=== PATIENT | female | born 1965 | race Caucasian/White ===

== ENCOUNTER 2020-10-22 14:43 | Observation (INO) ==
[2020-10-22] MEDS ORDERED: IOPAMIDOL 125 ML BOTTLE IV ONE (14:44)
[2020-10-22] MEDS ORDERED: KETOROLAC 15 MG/ML VIAL IV ONE (15:20)
[2020-10-22] MEDS ORDERED: 0.9 % SODIUM CHLORIDE 1,000 ML IV ONE ×2 (15:20→17:52)
[2020-10-22] MEDS ORDERED: ONDANSETRON 4 MG/2 ML VIAL IV ONE (15:43)
--- NOTE | 2020-10-22 15:45 | Emergency Department Note ---
HPI General Chief complaint: Flank Pain Stated complaint: left flank pain Time Seen by Provider: 10/22/20 14:50 Source: patient Mode of arrival: ambulatory Limitations: no limitations History of Present Illness HPI Narrative: Narrative: This patient presents for reevaluation of left flank pain from a kidney stone. Patient has had multiple ER visits for this complaint. She was seen at another emergency department and found to have a 2 mm obstructing stone to the left UVJ. She has been discharged with tamsulosin, hydrocodone and Toradol. She reports she is been taking his medications as directed but her pain has not been managed. She has been nauseated but has not had any vomiting. Pain has not changed in its location. She is unsure if she has had fevers or chills she does not have a thermometer at home. She has not felt lightheaded or short of breath. Related Data Home Medications Medication Instructions Recorded Confirmed losartan 100 mg PO DAILY 10/22/20 10/22/20 pantoprazole 20 mg PO DAILY 10/22/20 10/22/20 Allergies Allergy/AdvReac Type Severity Reaction Status Date / Time acetaminophen [From Percocet] Allergy Hives Verified 10/22/20 14:49 hydrocodone [From Lortab] Allergy Itching Verified 10/22/20 14:49 oxycodone [From Percocet] Allergy Hives Verified 10/22/20 14:49 Penicillins Allergy Anaphylaxis Verified 10/22/20 14:49 iv contrast Allergy Unknown Uncoded 10/22/20 14:49 Review of Systems ROS ROS Narrative: Narrative: Pertinent positives and negatives as noted in HPI. All other systems reviewed and negative. [facility] Narrative Patient History Narrative: Narrative: Medical/Surgical/Family History All Active Problems (Updated 10/22/20 @ 19:28 by Lanie Black PA-C) Renal stone (Acute) Exposure to COVID-19 virus (Acute) Contusion, hand (Acute) Constipation (Acute) Medical History Constipation Contusion, hand Social History Smoking Status: Never smoker Exam Narrative Narrative: Narrative: Vital signs noted General: mild distress. Skin: Warm. Dry. No rash. Normal color. Eyes: PERRL. EOMI. Mouth: Membranes moist. Normal inspection. Neck: Good ROM. No meningeal signs. Supple. Cardiovascular: Regular rate and rhythm. No murmur. Respiratory: No respiratory distress. Breath sounds equal. No wheezing/rales/rhonchi. Gastrointestinal: Abdomen soft. Tenderness palpation of the left abdomen.. No distention. Normal bowel sounds. No rebound tenderness or guarding. Back: Left CVA tenderness. No midline tenderness. Extremities: No tenderness. No swelling. No erythema. No edema. Good peripheral pulses x 4 Neurological: No focal neurological deficits observed. Alert. Oriented x 3 General Limitations: no limitations Course Course Course Narrative: An IV is established patient medicated with Toradol for pain, normal saline for dehydration and Zofran for nausea. Patient's pain is unimproved with Toradol and she is medicated with morphine. UA is negative CT of the abdomen pelvis with and without contrast identifies a 5 mm obstructing stone in the left UVJ. Based on the size of the stone to the patient's dif ficulty with pain management as an outpatient, as well as the duration of her symptoms I did speak with on-call urologist Dr. Hernandez. He will take the patient to surgery tomorrow to remove the stone. Patient is admitted to urology service. Tuck-in orders are placed by myself. Vital Signs Vital signs: Vital Signs Temperature 98.8 F 10/22/20 14:43 Pulse Rate 94 H 10/22/20 14:43 Respiratory Rate 16 10/22/20 14:43 Blood Pressure 172/94 10/22/20 14:43 Pulse Oximetry (%) 97 10/22/20 14:43 Temperature 98.8 F 10/22/20 14:43 Pulse Rate 80 10/22/20 19:04 Respiratory Rate 16 10/22/20 14:43 Blood Pressure 177/92 10/22/20 19:04 Pulse Oximetry (%) 94 10/22/20 19:04 [facility] MDM Narrative Medical decision making narrative: Narrative: Lab Data Result diagrams: 10/22/20 16:10 Labs: Lab Results 10/22/20 10/22/20 10/22/20 Range/Units 15:35 16:10 16:10 WBC 10.0 (4.5-11.0) K/mcL RBC 3.87 L (4.00-5.20) M/mcL Hgb 10.7 L (12.0-15.0) g/dL Hct 33.1 L (36.0-48.0) % POC Hct 32 L (36-48) % MCV 85.5 (80.0-100.0) fL MCH 27.6 (26.0-34.0) pg MCHC 32.3 (31.0-36.0) g/dL RDW 13.5 (11.5-14.5) % Plt Count 295 (140-440) K/mcL MPV 10.5 H (7.4-10.4) fL Neut % (Auto) 73.9 (38.0-78.0) % Lymph % (Auto) 16.6 (15.0-49.0) % Luce % (Auto) 8.6 (1.0-12.0) % Eos % (Auto) 0.7 (0.0-7.0) % Baso % (Auto) 0.2 (0.0-2.0) % Lymph # (Auto) 1.67 (1.50-4.80) K/mcL Luce # (Auto) 0.86 (0.10-0.90) K/mcL Eos # (Auto) 0.07 (0.00-0.70) K/mcL Baso # (Auto) 0.02 (0.00-0.20) K/mcL Absolute Neutrophils 7.42 (1.80-8.00) K/mcL POC Sodium 142 (133-145) mEq/L POC Potassium 3.7 (3.3-5.1) mEql/L POC Chloride 107 (96-108) mEq/L POC Total CO2 23 (22-30) mmol/L POC BUN 10 (6-20) mg/dL POC Creatinine 0.7 (0.6-1.2) mg/dL POC Glucose 96 (70-105) mg/dL POC WB Ioniz Calcium 1.21 (1.16-1.32) mmEq/L Urine Color Straw Urine Appearance Clear (Clear) Urine pH 6.0 (5.0-9.0) Ur Specific [place] 1.003 (1.000-1.035) Urine Protein Negative (Negative) mg/dL Urine Glucose (UA) Negative (Negative) mg/dL Urine Ketones Negative (Negative) mg/dL Urine Occult Blood Negative (Negative) mg/dL Urine Nitrate Negative (Negative) Urine Bilirubin Negative (Negative) mg/dL Urine Urobilinogen Negative mg/dL Ur Leukocyte Esterase Negative (Negative) /ug Urine RBC 0 (0-3) /hpf Urine WBC 1 (0-4) /hpf Ur Squamous Epith Cells 2 (0-4) /hpf Urine Bacteria None (0) /hpf Ur Culture Indicated? No Discharge Plan Patient/Caregiver Discharge Instructions Pt seen by PROTECTION OFFICER/PA only: Yes Clinical Impression: Renal stone Patient Disposition: Xfer As Outpt/Obs ([facility]) Follow up with: Red Christian ARNP [Primary Care Provider] - Prescriptions: No Action pantoprazole 20 mg tablet,delayed release (DR/EC) 20 mg PO DAILY RF: 0 losartan 100 mg tablet 100 mg PO DAILY RF: 0
[2020-10-22 16:25] LABS: POC Blood Urea Nitrogen 10 mg/dL (6-20); POC CO2 23 mmol/L (22-30); POC Calcium, Ionized 1.21 mmEq/L (1.16-1.32); POC Chloride 107 mEq/L (96-108); POC Creatinine 0.7 mg/dL (0.6-1.2); POC Glucose, Random 96 mg/dL (70-105); POC Hematocrit 32 % (36-48); POC Potassium 3.7 mEql/L (3.3-5.1); POC Sodium 142 mEq/L (133-145)
[2020-10-22] MEDS ORDERED: fentaNYL 100 MCG/2 ML VIAL IV STA (16:26)
[2020-10-22] MEDS ORDERED: KETAMINE 10 MG/ML ML IV ONE (16:26)
[2020-10-22 16:50] LABS: Appearance,Urine CLEAR (Clear); Bilirubin,Urine Negative (Negative); Color,Urine STRAW; Culture Indicated,Urine No; Glucose,Urine (UA) Negative (Negative); Ketones,Urine Negative (Negative); Leukocyte Esterase,Urine Negative /ug (Negative); Nitrate,Urine Negative (Negative); Protein,Urine Negative (Negative); Specific Gravity,Urine 1.003 (1.000-1.035); Urine Blood Negative (Negative); Urine RBC 0 /hpf (0-3); Urine Squamous Epithelial Cell 2 /hpf (0-4); Urine WBC 1 /hpf (0-4); Urobilinogen,Urine Negative
[2020-10-22 17:24] LABS: Basophils # (Auto) 0.02 K/mcL (0.00-0.20); Basophils % (Auto) 0.2 % (0.0-2.0); Eosinophils # (Auto) 0.07 K/mcL (0.00-0.70); Eosinophils % (Auto) 0.7 % (0.0-7.0); Hematocrit 33.1 % (36.0-48.0); Hemoglobin 10.7 g/dL (12.0-15.0); Lymphocytes # (Auto) 1.67 K/mcL (1.50-4.80); Lymphocytes % (Auto) 16.6 % (15.0-49.0); Mean Cell Volume 85.5 fL (80.0-100.0); Mean Corpuscular HGB Conc 32.3 g/dL (31.0-36.0); Mean Platelet Volume 10.5 fL (7.4-10.4); Monocytes # (Auto) 0.86 K/mcL (0.10-0.90); Monocytes % (Auto) 8.6 % (1.0-12.0); Neutrophils % (Auto) 73.9 % (38.0-78.0); Platelet Count 295 K/mcL (140-440); RBC 3.87 M/mcL (4.00-5.20); Red Cell Distribution Width 13.5 % (11.5-14.5)
[2020-10-22] MEDS ORDERED: morphine 2 MG/ML VIAL IV PRN (17:47)
[2020-10-22] MEDS ORDERED: ONDANSETRON 4 MG/2 ML VIAL IV PRN (17:47)
[2020-10-22] MEDS ORDERED: 0.9 % SODIUM CHLORIDE 1,000 ML IV SCH ×3 (18:00)
[2020-10-22] MEDS: morphine 4 MG/ML VIAL IV PRN ×2 (18:07→19:29)
--- NOTE | 2020-10-22 19:51 | Cat Scan Report ---
History: Nephrolithiasis with left-sided stone and increasing pain TECHNIQUE: The patient was imaged before and after intravenous nonionic contrast. Sagittal and coronal reformats were created. Radiation exposure was limited using dose reduction technology. FINDINGS: Mild dependent atelectasis is present in the posterior basal segments of both lower lobes. The liver and spleen are normal in size and homogeneous. The gallbladder and bile ducts are normal. No evidence of mass or inflammation the pancreas. The adrenals are normal and symmetric. At the left ureteropelvic junction there is a 4 x 5 mm calculus causing mild hydronephrosis. There is subtle stranding of the perirenal fat. Distal to the stone the left ureter is decompressed. There are also two tiny calyceal stones in left kidney which each measure less than 1.5 mm in diameter. In the right kidney there are two tiny nonobstructing calyceal stones which are approximately 1 mm in size. There is no hydronephrosis on the right. Renal parenchyma is normal in thickness and attenuation bilaterally, without evidence of inflammation or mass. There are no stones within the urinary bladder.. Comparison with the prior CT from 06/04/20 shows that the 5 mm stone was previously located in the upper pole infundibulum. The aorta and inferior vena cava are normal. Patient has no ascites. Bowel gas pattern is normal. There is a 2 cm cyst in left ovary. There appear to be several tiny follicles in the right ovary. Uterus is anteverted and normal in size. IMPRESSION: Bilateral small kidney stones 5 mm calculus of the left ureteropelvic junction causing mild hydronephrosis. Lanie Black was called with the report Interpreted and Authenticated by: Jaswinder Blunt 10/22/20
[2020-10-22] MEDS: DEXTROSE 5%-1/4NS 1,000 ML IV SCH (20:45)
[2020-10-23] MEDS: DEXTROSE 5%-1/4NS 1,000 ML IV SCH ×3 (06:41→20:05)
[2020-10-23] MEDS ORDERED: IPRATROPIUM/ALBUTEROL 3 ML AMPUL.NEB NEB PRN ×2 (07:00→12:47)
[2020-10-23] MEDS ORDERED: SCOPOLAMINE 1 PATCH PATCH TOPICAL PRN (08:00)
--- NOTE | 2020-10-23 11:39 | EKG ---
[facility] Test Date: 2020-10-22 Pat Name: Sylvia Greer Department: [facility] Room: 131 Gender: Female [employer]: : 1965 Requested By: Nick Sparks Order Number: [id number] Reading MD: Kvng Dunn M.D. Measurements Intervals Accord Rate: 86 P: 49 ND: 168 QRS: 39 QRSD: 84 T: 7 QT: 344 QTc: 412 Interpretive Statements SINUS RHYTHM LEFT ATRIAL ABNORMALITY CONSIDER ANTEROSEPTAL INFARCT BORDERLINE T ABNORMALITIES, ANTERIOR LEADS NO PRIOR TRACING FOUND IN Fulcrum SP Materials ABNORMAL ECG Electronically Signed On 10-23-2020 11:39:16 PDT by Kvng Dunn M.D. /[facility]/M0/[id number]
[2020-10-23] MEDS ORDERED: LEVOFLOXACIN 500 MG/100 ML BAG IV ONE (12:28)
--- NOTE | 2020-10-23 12:28 | General Surg History&Physical ---
HPI History of Present Illness Patient information: Note initiated : 10/23/20 at 12:27 pm Service Date, if different from initiated Date: [] Patient: Sylvia Greer a 55 y/o F admitted on 10/22/20 for left flank pain. Chief Complaint: [] Chief complaint: Left flank pain History of present illness: Ms. Greer is a 55 year old F who had a sudden onset of left flank pain about 2 weeks ago. Is been present off and on and is s imilar to the pain she had with 2 previous stones. Both of those stones did pass spontaneously and the severity of the pain with the stone is the worst that she has had. There is nausea but no vomiting. In the emergency room she was found to have a urinalysis that did not show any sign of infection. Her white count is normal and she was afebrile. Because of the severity of the pain she was admitted for pain control and definitive intervention. The CT showed a 5 mm stone at the left ureteropelvic junction. She was counseled regarding the possibility that we may not be able to get the ureteroscope all the way up to the kidney on the first attempt in which case we will leave the stent in allow the ureter to dilate and bring her back at a later time. In addition to the 4 x 5 mm stone at the UPJ she had to 1.5 mm stones and nonobstructing locations in the left kidney and two 1 mm stones and nonobstructing locations of the right kidney Review of Systems All systems: reviewed and no additional remarkable complaints except as stated Constitutional Constitutional: Present as per HPI EENT Eyes: Present as per HPI Ears: Present as per HPI Cardiovascular Cardiovascular: Present as per HPI Respiratory Respiratory: Present as per HPI Gastrointestinal Gastrointestinal: Present as per HPI Integumentary Integumentary: Present as per HPI Psychiatric Psychiatric: Present as per HPI PFSH PFSH All Active Problems (Updated 10/23/20 @ 12:38 by Adarsh Hernandez MD) Left ureteral calculus (Acute) Renal stone (Acute) Exposure to COVID-19 virus (Acute) Contusion, hand (Acute) Constipation (Acute) Medical History Constipation Contusion, hand MEDS/ALLERGIES Home Medications and Allergies Home Medications Medication Instructions Recorded Confirmed Type losartan 100 mg PO DAILY 10/22/20 10/22/20 History pantoprazole 20 mg PO DAILY 10/22/20 10/22/20 History Allergies Allergy/AdvReac Type Severity Reaction Status Date / Time hydrocodone [From Lortab] Allergy Severe Itching Verified 10/22/20 22:26 oxycodone [From Percocet] Allergy Severe Hives Verified 10/22/20 22:26 Penicillins Allergy Severe Anaphylaxis Verified 10/22/20 22:26 aspirin [From Percodan] AdvReac Mild Nausea Verified 10/22/20 22:26 Physical Examination Vital Signs Vital signs: Temp Pulse Resp BP Pulse Ox 98.6 F 73 20 155/82 94 10/23/20 08:00 10/23/20 08:00 10/23/20 08:00 10/23/20 08:00 10/23/20 08:00 General physical appearance General physical exam: moderate pain Eyes Eye exam: normal ocular movement ENT ENT exam: normal pinna and normal nares Neck Neck exam: no masses, no bruits, trachea midline, no lymphadenopathy, no venous distension, deviated trachea, diffuse goiter, limited ROM and other Cardiovascular Cardiovascular exam IM: Present normal rate and rhythm Respiratory Respiratory exam: normal expansion Abdomen Abdomen: Present soft Integumentary Integumentary: Present no rash Musculoskeletal Musculoskeletal: Present normal posture Results Labs Result diagrams: 10/22/20 16:10 Labs: Abnormal lab results 10/22/20 10/22/20 Range/Units 16:10 16:10 RBC 3.87 L (4.00-5.20) M/mcL Hgb 10.7 L (12.0-15.0) g/dL Hct 33.1 L (36.0-48.0) % POC Hct 32 L (36-48) % MPV 10.5 H (7.4-10.4) fL All other labs normal. A/P Assessment and plan (1) Left ureteral calculus: Status: Acute Comment: N.p.o. and proceed with left ureteroscopy in an attempt to remove the nonobstructing stone or to at least push it back into the kidney and stent (2) Renal stone: Status: Acute Time Spent With Patient Time: Total time spent is greater than 50% in coordination of care (as documented) at patient's floor/unit and/or counseling patient:
[2020-10-23] MEDS ORDERED: PHENYLEPHRINE 10 MG/ML VIAL ONE (12:32)
[2020-10-23] MEDS ORDERED: GLYCOPYRROLATE 0.2 MG/ML VIAL IV ONE (12:32)
[2020-10-23] MEDS ORDERED: fentaNYL 100 MCG/2 ML VIAL IV ONE (12:32)
[2020-10-23] MEDS ORDERED: KETAMINE 50 MG/ML ML ONE (12:32)
[2020-10-23] MEDS ORDERED: ONDANSETRON 4 MG/2 ML VIAL ONE (12:32)
[2020-10-23] MEDS ORDERED: MIDAZOLAM 2 MG/2 ML VIAL ONE (12:32)
[2020-10-23] MEDS ORDERED: MAGNESIUM SULFATE 2 GM/50 ML BAG IV ONE (12:32)
[2020-10-23] MEDS ORDERED: HYDROmorphone 1 MG/ML SYRINGE ONE ×2 (12:32→19:48)
[2020-10-23] MEDS ORDERED: LIDOCAINE HCL/PF 100 MG/5 ML SYRINGE IV ONE (12:32)
[2020-10-23] MEDS ORDERED: DEXAMETHASONE 10 MG/ML VIAL ONE (12:32)
[2020-10-23] MEDS ORDERED: PROPOFOL 200 MG/20 ML VIAL IV ONE (12:32)
[2020-10-23] MEDS ORDERED: HYDROmorphone 0.5 MG/0.5 ML SYRINGE IV PRN (12:47)
[2020-10-23] MEDS ORDERED: METOPROLOL TARTRATE 5 MG/5 ML VIAL IV PRN (12:47)
[2020-10-23] MEDS ORDERED: FLUMAZENIL 0.1 MG/ML ML IV PRN (12:47)
[2020-10-23] MEDS ORDERED: fentaNYL 100 MCG/2 ML VIAL IV PRN (12:47)
[2020-10-23] MEDS ORDERED: LABETALOL 5 MG/ML ML IV PRN (12:47)
[2020-10-23] MEDS ORDERED: MEPERIDINE 50 MG/ML VIAL IM PRN (12:47)
[2020-10-23] MEDS ORDERED: ACETAMINOPHEN 1,000 MG/100 ML BAG IV ONE (12:47)
[2020-10-23] MEDS ORDERED: METHOCARBAMOL 1,000 MG/10 ML VIAL IV PRN (12:47)
[2020-10-23] MEDS ORDERED: PROMETHAZINE 25 MG/ML VIAL IM PRN (12:47)
[2020-10-23] MEDS ORDERED: LACTATED RINGERS 250 ML IV PRN (12:47)
[2020-10-23] MEDS ORDERED: NALOXONE HCL 0.4 MG/ML VIAL IV PRN (12:47)
[2020-10-23] MEDS ORDERED: IOVERSOL 20 ML VIAL IV ONE (12:49)
[2020-10-23] MEDS ORDERED: LACTATED RINGERS 1,000 ML IV SCH (13:00)
--- NOTE | 2020-10-23 13:05 | Brief Operative Note ---
Brief Operative Note Date of procedure: 10/23/20 Pre-op diagnosis: Left ureteral calculus Post-op diagnosis: same Procedure: Cystoscopy with left stent placement Grafts/Implants: Yes Anesthesia: GETA Findings: Left UPJ stone with narrow proximal ureter Complications: none Surgeon: Adarsh Hernandez Estimated blood loss (cc): 0 Tourniquet Time (Minutes): 0 Specimens Removed/Pathology: none sent Condition: stable Disposition: PACU
--- NOTE | 2020-10-23 13:11 | Operative Note ---
Operative Note Operative Note: Preop diagnosis--left ureteral stone Surgeon--Adarsh Hernandez Operation performed--cystoscopy with left ureteral stent placement Postop diagnosis--same Anesthesia--General with LMA Specimen--none Blood loss--none Complications--none Drain--none Date of operation and dictation--10/23/2020 Indication this 55-year-old female with prior history of 2 different stones both of which passed spontaneously has had a 2-week history of intermittent episodes of severe left flank pain. This was associated with nausea but no vomiting. In the emergency room it was difficult to control the pain. There was no sign of infection in the urine. She is in at this time for intervention. Description--the patient was taken to the operating room and placed on the operating table in a supine position. A timeout was called at which time we confirmed the patient position, patient, procedure and presence of antibiotic. She had 500 of Levaquin IV. Following satisfactory induction of general anesthesia patient was prepped and draped in a lithotomy position. A 21 Vietnamese cystoscope was inserted into the bladder under direct vision. The urethra was normal. Bladder neck was normal. Trigone and orifices were normal as was the bladder itself. The left ureteral orifice was easily identified. A 5 Vietnamese open tip catheter was inserted and a retrograde study was done. She had a very delicate ureter all the way up to just below the ureteropelvic junction when it appeared to narrow. There was a stone seen during the retrograde study and during that same study the stone popped back up into the kidney and ended up in the lower calyx. Because of the narrow diameter of the ureter especially in the proximal area I elected to stent only and allow the stent to dilate the ureter and come back at a later time for a more definitive intervention. As a result a 6 Vietnamese by 24 cm double-J stent was passed over the guidewire leaving the string attached with a knot in it. It was advanced into the upper calyx. It was the shortest stent available. When the wire was withdrawn slowly there was good curl in the kidney and as it was completely removed there was good coil in the bladder. The bladder was emptied and the cystoscope removed. Final position was confirmed on x-ray and following that the string was cut short. It was just outside the urethral meatus. At that point she was transferred to recovery in satisfactory condition
[2020-10-23] MEDS: 0.9 % SODIUM CHLORIDE 10 ML SYRINGE IV SCH ×2 (14:20→22:07)
--- NOTE | 2020-10-23 17:57 | XRay Report ---
HISTORY: FINDINGS: IMPRESSION: 0.5 minutes of fluoroscopy time was used. Interpreted and Authenticated by: Jaswinder Blunt 10/23/20
[2020-10-23] MEDS: traMADol 50 MG TABLET PO PRN (18:38)
[2020-10-23] MEDS ORDERED: traMADol 50 MG TABLET PO ONE (18:38)
[2020-10-23] MEDS: HYDROmorphone 0.5 MG/0.5 ML SYRINGE IV PRN (19:50)
[2020-10-24] MEDS: HYDROmorphone 0.5 MG/0.5 ML SYRINGE IV PRN ×2 (00:04→03:02)
[2020-10-24] MEDS: traMADol 50 MG TABLET PO PRN (03:02)
[2020-10-24] MEDS: DEXTROSE 5%-1/4NS 1,000 ML IV SCH ×2 (03:49→16:43)
[2020-10-24] MEDS: 0.9 % SODIUM CHLORIDE 10 ML SYRINGE IV SCH ×2 (04:57→16:44)
--- NOTE | 2020-10-24 07:54 | General Surgery Progress Note ---
SUBJECTIVE Subjective Patient information: Note initiated : 10/24/20 at 7:46 am Service Date, if different from initiated Date: [] Patient: Sylvia Greer 55 y/o F admitted on 10/22/20 for left flank pain. Chief Complaint: [] Left flank pain Principal diagnosis: Left renal calculus Interval history: Patient taken to the operating room yesterday with inability to do ureteroscopic laser lithotripsy for UPJ stone. She was stented and overnight tolerated very poorly. She was controlled best on IV Dilaudid and no relief from Ultram. There is enough pain that she does not feel like she can go home this morning. We will try her on oral Dilaudid and work on scheduling for a week or more. She is ambulating and tolerating regular diet. She is voiding normally. Constitutional Vitals: Vital Signs Temp Pulse Resp BP Pulse Ox 98.0 F 77 20 161/86 95 10/24/20 07:03 10/24/20 07:03 10/24/20 07:03 10/24/20 07:03 10/24/20 07:03 Period Temp Pulse Resp BP Sys/Godfrey Pulse Ox Last 24 Hr 97.8 F-99.7 F 73-105 12-20 95-167/51-95 83-97 Intake and Output 10/23/20 10/24/20 10/24/20 21:59 05:59 13:59 Intake Total 1767 200 Output Total 2100 950 100 Balance -2100 817 100 Weight 182 lb 4.8 oz Intake & Output: Intake & Output 10/23/20 10/24/20 10/24/20 21:59 05:59 13:59 Intake Total 1767 200 Output Total 2100 950 100 Balance -2100 817 100 Weight 182 lb 4.8 oz Intake: IV 967 Dextrose 5%-Sod Chloride 0.2% 1 967 ,000 ml @ 125 mls/hr IV .Q8H [facility] Rx#:[id number] Oral 800 200 Output: Void Amount 2100 950 100 Other: Urine Appearance Cloudy Urine Color Red [place] Dark Yellow Urine Odor Strong Normal A/P Assessment and plan (1) Renal stone: Assessment and plan: Assessment--left renal calculus with stent Plan--pain control for stent pain and move forward with scheduling ureteroscopic laser lithotripsy Will try oral Dilaudid 2 or 4 mg p.o. every 4 hours as needed pain Status: Acute Time Spent With Patient Time: Total time spent is greater than 50% in coordination of care (as documented) at patient's floor/unit and/or counseling patient:
[2020-10-24] MEDS: HYDROmorphone 2 MG TABLET PO PRN ×4 (08:13→13:28)
--- NOTE | 2020-10-24 16:11 | General Surgery Progress Note ---
SUBJECTIVE Subjective Patient information: Note initiated : 10/24/20 at 4:06 pm Service Date, if different from initiated Date: [] Patient: Sylvia Greer 55 y/o F admitted on 10/22/20 for left flank pain. Chief Complaint: []Left flank pain probably from stent Principal diagnosis: Left renal calculus Interval history: This is a 55-year-old female who presented with pain from an infected stone. She was stented yesterday but stent seems to be causing more pain than she had with just the stone. It is not responding to tramadol or Dilaudid both IV and oral. Nothing is really given her relief. We discussed the possibility of a removing the stent might relieve the pain but it might make it worse if the stone were to drop back down unobstruct again. After considering her options she would rather have it taken out. With privacy drapes pulled the urethral meatus was examined and the string was seen coming out of it. It was grasped on the first attempt and the stent was removed without difficulty. She thought that it was the worst pain that she had ever had having the stent removed. She is currently scheduled for stone removal in 1 week. In the meantime we will have her on Cipro along with Tylenol and ibuprofen. Constitutional Vitals: Vital Signs Temp Pulse Resp BP Pulse Ox 98.4 F 76 20 168/83 94 10/24/20 12:00 10/24/20 12:00 10/24/20 12:00 10/24/20 12:00 10/24/20 12:00 Period Temp Pulse Resp BP Sys/Godfrey Pulse Ox Last 24 Hr 98.0 F-98.6 F 76-91 16-20 146-168/81-95 91-95 Intake and Output 10/24/20 10/24/20 10/24/20 05:59 13:59 21:59 Intake Total 1767 1200 Output Total 950 750 Balance 817 450 Intake & Output: Intake & Output 10/24/20 10/24/20 10/24/20 05:59 13:59 21:59 Intake Total 1767 1200 Output Total 950 750 Balance 817 450 Intake: IV 967 1000 Dextrose 5%-Sod Chloride 0.2% 1 967 1000 ,000 ml @ 125 mls/hr IV .Q8H [facility] Rx#:[id number] Oral 800 200 Output: Void Amount 950 750 Other: Meal Breakfast Percent of Meal Consumed 25% Feeding Ability Assist with Tray Set Up Urine Color [place] Straw Urine Odor Normal A/P Assessment and plan (1) Renal stone: Status: Acute (2) UTI (urinary tract infection): Status: Acute Narrative A/P Narrative: Patient will be discharged home without the stent on Cipro and will be using Motrin 800 mg and Tylenol 500 mg every 6 hours as needed for pain. She is currently scheduled for definitive surgery 1 week from tomorrow. Time Spent With Patient Time: Total time spent is greater than 50% in coordination of care (as documented) at patient's floor/unit and/or counseling patient:
--- NOTE | 2020-10-24 16:24 | Discharge Summary ---
Discharge Provider Provider Patient information: Note initiated : 10/24/20 at 4:23 pm Service Date, if different from initiated Date: [] Patient: Sylvia Greer 55 y/o F admitted on 10/22/20 for left flank pain. Chief Complaint: [] Date of admission: 10/22/20 20:23 Discharge date: 10/24/20 Primary care physician: Red Christian Consults: 10/22/20 Consult to Physician [CONS] Stat Comment: Consulting Provider: Adarsh Hernandez Reason For Exam: Physician to Consult COURSE Hospital Course Hospital course: Patient taken to the operating room yesterday where stented but not tolerating statin through the day and last night. Stent was removed today and she is being discharged home to have definitive intervention in 1 week Discharge diagnosis: Left renal calculus Reason for admission: Left flank pain Procedures: Cystoscopy with left stent placement Complications: None Time Spent with Patient Time attestation: Total time spent providing and/or coordinating discharge services: Time spent: Less than 30 minutes Specific discharge activities: Regular diet and increase fluid intake no more scrolling down Physical Examination Vital Signs Vital signs: Temp Pulse Resp BP Pulse Ox 98.4 F 76 20 168/83 94 10/24/20 12:00 10/24/20 12:00 10/24/20 12:00 10/24/20 12:00 10/24/20 12:00 Discharge Plan Patient/Caregiver Discharge Instructions Diet: Regular Diet Instructions: Lithotripsy (DC) Activity Restrictions/Additional Instructions: Resume a Regular diet Increase activity as tolerated Call on Thursday for a surgery followup with Dr. Hernandez. Take your screen home iwith you so you can continue to strain all urine output. If you have any questions or concerns, call Dr Hernandez office. This discharge packet is provided to you to help keep you informed about your care. We want to ensure you get everything you need when you go home. You will also be receiving a call from us in a few days to follow up with you and see how you are doing since your discharge. This gives us a chance to listen to any concerns you maybe experiencing since you were discharged or any additional needs you may have, as well as providing us feedback on your care experience. We strive to always provide excellent care and thank you for your feedback and for choosing [facility]. Prescriptions: New ciprofloxacin HCl [Cipro] 500 mg tablet 500 mg PO BID 10 Days Qty: 20 RF: 0 Continued pantoprazole 20 mg tablet,delayed release (DR/EC) 20 mg PO DAILY RF: 0 losartan 100 mg tablet 100 mg PO DAILY RF: 0 Follow Up Plan Follow up with: Adarsh Hernandez MD [Physician] - (Call on Thursday to Dr Hernandez office to set up an appointment in 1-2 weeks.) Patient Disposition: Home, Self-Care Prognosis: Fair Discharge Orders: Discharge Order (Routine); Ordered 10/24/20 Ordered By: Adarsh Hernandez Pending Pending Pending: Diet Regular Diet Start ThuOct 23 1850 Diagnostic Test (Pha) (Accu-Chek 1 Each Strip) 1 each FS Q8 TYSHAWN Last Admin: 10/24/20 05:42 Dose: 1 each Documented by: Admin: 10/23/20 22:06 Dose: 1 each Documented by: Admin: 10/23/20 14:20 Dose: Not Given Documented by: Admin: 10/23/20 06:09 Dose: 1 each Documented by: Admin: 10/22/20 20:45 Dose: 1 each Documented by: JEROD Hydromorphone HCl (Hydromorphone 0.5 Mg/0.5 Ml Syringe) 0 mg IV Q2HP PRN; Protocol PRN Reason: Per Pain Protocol Last Admin: 10/24/20 03:02 Dose: 0.5 mg Documented by: Admin: 10/24/20 00:04 Dose: 0.5 mg Documented by: Admin: 10/23/20 19:50 Dose: 1 mg Documented by: JEROD Hydromorphone HCl (Hydromorphone 2 Mg Tablet) 2 - 4 mg PO Q4HP PRN; Protocol PRN Reason: Per Pain Protocol Last Admin: 10/24/20 13:28 Dose: 2 mg Documented by: Admin: 10/24/20 12:49 Dose: 2 mg Documented by: [email or web address] Admin: 10/24/20 08:51 Dose: 2 mg Documented by: Admin: 10/24/20 08:13 Dose: 2 mg Documented by: CATHERINE Dextrose/Sodium Chloride (Dextrose 5%-Sod Chloride 0.2%) 1,000 mls @ 125 mls/hr IV .Q8H TYSHAWN Last Infusion: 10/24/20 12:30 Dose: 0 mls/hr Documented by: [email or web address] Admin: 10/24/20 03:49 Dose: 125 mls/hr Documented by: Infusion: 10/24/20 03:49 Dose: 0 mls/hr Documented by: Admin: 10/23/20 20:05 Dose: 125 mls/hr Documented by: Admin: 10/23/20 11:30 Dose: Not Given Documented by: Infusion: 10/23/20 08:35 Dose: 125 mls/hr Documented by: Admin: 10/23/20 06:41 Dose: Not Given Documented by: Infusion: 10/23/20 06:41 Dose: 0 mls/hr Documented by: Admin: 10/22/20 20:45 Dose: 125 mls/hr Documented by: JEROD Ondansetron HCl (Ondansetron 4 Mg/2 Ml Vial) 4 mg IV Q4-6HP PRN PRN Reason: Nausea And Vomiting Last Admin: 10/23/20 18:15 Dose: 4 mg Documented by: EVA Sodium Chloride (0.9 % Sodium Chloride 10 Ml Syringe) 5 ml IV Q8 TYSHAWN Last Admin: 10/24/20 04:57 Dose: Not Given Documented by: Admin: 10/23/20 22:07 Dose: Not Given Documented by: Admin: 10/23/20 14:20 Dose: Not Given Documented by: EVA Shift Summary 10/24/20 04:08 Shift Summary by Jesica Agee A&O, stayed overnight for pain control. Medicated with Ultram at start of shift with no effect, got order for dilaudid, she has gotten 1mg once and 0.5 mg x2. Got her pain down to like a 4 once, but she rates it at about a 7 the majority of the time, when educated that she can have more dilaudid if she needs it, she says she wants to hold off, has been pretty hesitant to do narcs r/t worry of addiction. Up with SBA, reported some dizziness after the 1mg dose of dilaudid. I gave her another dose of Ultram, its only ordered Q8H prn, may need dose increased or frequency decreased for better effectiveness. She refuses to take other narcotics d/t itching/headaches. Voiding well, urine is bloody, strain all urine, no stones noted. D5 1/4 NS to 20G right hand. Should d/c today if pain gets under control. BG at 2200 was 165, no coverage ordered, also patient will refuse it. Initialized on 10/24/20 04:08 - END OF NOTE
== END 2020-10-24 16:59 | disposition home or self-care (01) ==
LOC: ED 14:43 → MEDSUR 14:43
PROVIDERS: ADMIT Urology; ATTEND Urology